=== PATIENT | female | born 1990 ===

== ENCOUNTER 2022-01-25 08:56 | Outpatient (CLI) | payer OTHER | END 2022-01-25 09:45 | disposition home or self-care (01) | LOC: PRENATAL 08:56 | PROVIDERS: ATTEND Obstetrics & Gynecology Maternal & Fetal Medicine | DX: O34.11 Maternal care for benign tumor of corpus uteri, first trimester (principal); O36.80X1 Pregnancy with inconclusive fetal viability, fetus 1; Z36.89 Encounter for other specified antenatal screening; Z3A.14 14 weeks gestation of pregnancy ==

== ENCOUNTER 2022-02-27 13:10 | Emergency (ER) | payer OTHER ==
[~2022-02-27] VITALS: Ht 157.5 cm; Wt 61.2 kg
== END 2022-02-27 13:59 | disposition home or self-care (01) ==
LOC: ER 13:10
DX: O26.892 Other specified pregnancy related conditions, second trimester (principal); Z3A.18 18 weeks gestation of pregnancy; R10.2 Pelvic and perineal pain; Z91.013 Allergy to seafood

== ENCOUNTER 2022-03-15 08:34 | Outpatient (CLI) | payer OTHER | END 2022-03-15 09:45 | disposition home or self-care (01) | LOC: PRENATAL 08:34 | PROVIDERS: ATTEND Obstetrics & Gynecology Maternal & Fetal Medicine | DX: O35.0XX0 Maternal care for (suspected) central nervous system malformation in fetus, not applicable or unspecified (principal); Z3A.21 21 weeks gestation of pregnancy; O35.3XX0 Maternal care for (suspected) damage to fetus from viral disease in mother, not applicable or unspecified; O99.891 Other specified diseases and conditions complicating pregnancy; O34.10 Maternal care for benign tumor of corpus uteri, unspecified trimester ==

== ENCOUNTER 2022-05-31 09:32 | Outpatient (CLI) | payer OTHER | END 2022-05-31 10:32 | disposition home or self-care (01) | LOC: PRENATAL 09:32 | PROVIDERS: ATTEND Obstetrics & Gynecology Maternal & Fetal Medicine | DX: O26.849 Uterine size-date discrepancy, unspecified trimester (principal); O99.891 Other specified diseases and conditions complicating pregnancy; O34.10 Maternal care for benign tumor of corpus uteri, unspecified trimester; Z88.0 Allergy status to penicillin; Z3A.32 32 weeks gestation of pregnancy; Z91.013 Allergy to seafood ==

== ENCOUNTER 2022-07-15 11:15 | Inpatient (IN) | payer OTHER ==
[~2022-07-15] VITALS: Ht 152.4 cm; Wt 3.2 kg
[2022-07-26] MEDS ORDERED: IRON325 MG PO (10:16)
[2022-07-26] MEDS ORDERED: PRENATAL CAPLE1 EAC1 PO (10:16)
== END 2022-07-29 15:17 | disposition home or self-care (01) | DRG 788 ==
LOC: LDR 07-26 07:14 → OB/GYN 07-26 07:14
PROVIDERS: ADMIT Obstetrics & Gynecology; ATTEND Obstetrics & Gynecology
PROC: 4A1HXCZ Monitoring of Products of Conception, Cardiac Rate, External Approach (ICD-10-PCS; 2022-07-26)
PROC: 10D00Z1 Extraction of Products of Conception, Low, Open Approach (ICD-10-PCS; principal; 2022-07-26 18:00)
DX: O62.0 Primary inadequate contractions (principal); O62.1 Secondary uterine inertia; Z37.0 Single live birth; Z3A.40 40 weeks gestation of pregnancy; Z20.822 Contact with and (suspected) exposure to COVID-19